=== PATIENT | male | born 1985 | race African-American/Black ===

== ENCOUNTER 2017-10-31 19:56 | Emergency (ER) | payer MEDICAID ==
[~2017-10-31] VITALS: Ht 175.3 cm; Wt 64.0 kg
[~2017-10-31 19:56] MED LIST: CIPR2.5D9 OP
[2017-11-01 03:00] VITALS: BP 109/67
[2017-11-01] MEDS ORDERED: IBUPROFEN 600MG TABLET PO ONE (03:00)
== END 2017-11-01 03:30 | disposition home or self-care (01) ==
LOC: ER 19:56
DX: S16.1XXA Strain of muscle, fascia and tendon at neck level, initial encounter (principal); R05 Cough; X58.XXXA Exposure to other specified factors, initial encounter; Y93.89 Activity, other specified; Y92.89 Other specified places as the place of occurrence of the external cause; Y99.8 Other external cause status; Z88.0 Allergy status to penicillin
CPT/HCPCS: 71045; 99283

== ENCOUNTER 2018-09-27 19:12 | Emergency (ER) | payer MEDICAID ==
[~2018-09-27] VITALS: Ht 175.3 cm; Wt 62.0 kg
[2018-09-27 20:04] VITALS: BP 120/63
[2018-09-27] MEDS ORDERED: ONDANSETRON HCL 4MG/2ML INJ IV STA (20:35)
[2018-09-27] MEDS ORDERED: SODIUM CHLORIDE 0.9% 1,000 ML IV ONE (20:35)
[2018-09-27] MEDS ORDERED: ACETAMINOPHEN 325MG TABLET PO ONE (20:45)
[2018-09-27 20:56] LABS: HEMATOCRIT. 43.6 % (42.0-52.0); HEMOGLOBIN. 14.6 g/dL (14.0-18.0); MEAN CORPUSCULAR HEMOGLOBIN 29.9 pg (28.0-32.0); MEAN CORPUSCULAR VOLUME 89.1 fL (80.0-94.0); MEAN PLATELET VOLUME 10.8 fl (7.4-10.4); PLATELET 170 x1000/uL (130-400); RED CELL DISTRIBUTION WIDTH 13.5 % (11.6-14.6)
[2018-09-27 20:57] LABS: CHLORIDE 104 mEq/L (98-107)
[2018-09-27 21:43] LABS: CLARITY URINE CLEAR (CLEAR); COLOR URINE YELLOW (YELLOW); KETONES URINE 1+ (NEGATIVE); LEUKOCYTE ESTERASE URINE TRACE (NEGATIVE); NITRITE URINE NEGATIVE (NEGATIVE); OCCULT BLOOD URINE NEGATIVE (NEGATIVE); PH URINE 7.5 (4.5-8.0); PROTEIN URINE TRACE (NEGATIVE); UROBILINOGEN URINE 0.2 E.U./dL (0.2-1.0)
[2018-09-27 22:24] LABS: PLATELET ESTIMATE NORMAL
== END 2018-09-27 22:54 | disposition home or self-care (01) ==
LOC: ER 19:12
DX: R11.10 Vomiting, unspecified (principal); R19.7 Diarrhea, unspecified; J45.909 Unspecified asthma, uncomplicated; Z88.0 Allergy status to penicillin
CPT/HCPCS: 36415; 80053; 81003; 85025; 96361; 96374; 99283; J2405; J7030; Z7610

== ENCOUNTER 2022-10-08 11:31 | Emergency (ER) | payer MEDICAID ==
[~2022-10-08] VITALS: Ht 175.3 cm; Wt 59.0 kg
[~2022-10-08 11:31] MED LIST changes: +CIPR2.5D13 OP; -CIPR2.5D9 OP
[2022-10-08] MEDS ORDERED: VISCOUS LIDOCAINE 2% 15 ML UDC MM STA (12:28)
[2022-10-08] MEDS ORDERED: MAGNESIUM/ALUMINUM HYDROXIDE/SIMETHICONE 30ML UDC PO ONE (12:30)
[2022-10-08] MEDS ORDERED: FAMOTIDINE 20MG TABLET PO ONE (12:30)
[2022-10-08] MEDS ORDERED: ONDANSETRON 4MG ODT PO ONE (12:30)
[2022-10-08 13:30] VITALS: BP 107/72
[2022-10-08] MEDS ORDERED: SODIUM CHLORIDE 0.9% 1,000 ML IV ONE (13:30)
[2022-10-08] MEDS ORDERED: KETOROLAC 15MG/ML VIAL IV ONE (13:30)
[2022-10-08] MEDS ORDERED: METOCLOPRAMIDE HCL 10MG/2ML VIAL IV ONE (13:30)
[2022-10-08 14:12] LABS: BASOPHILS % 0.6 % (0.0-2.0); HEMATOCRIT. 45.2 % (42.0-52.0); HEMOGLOBIN. 15.2 g/dL (14.0-18.0); LYMPHOCYTES % 7.9 % (20.0-50.0); MEAN CORPUSCULAR HEMOGLOBIN 29.8 pg (28.0-32.0); MEAN CORPUSCULAR VOLUME 88.3 fL (80.0-94.0); NEUTROPHILS % 84.5 % (40.0-76.0); RED BLOOD CELL COUNT 5.11 mill/uL (4.7-6.1); RED CELL DISTRIBUTION WIDTH 14.1 % (11.6-14.6)
[2022-10-08 14:15] LABS: CHLORIDE 95 mEq/L (98-107)
[2022-10-08 14:46] LABS: MEAN PLATELET VOLUME 10.8 fl (7.4-10.4); PLATELET 184 x1000/uL (130-400)
[2022-10-08] MEDS ORDERED: FAMO-135 MT (15:41)
[2022-10-08] MEDS ORDERED: ONDA4TAB11 PO (15:41)
== END 2022-10-08 16:04 | disposition home or self-care (01) ==
LOC: ER 12:36
DX: R11.2 Nausea with vomiting, unspecified (principal); R19.7 Diarrhea, unspecified; E86.0 Dehydration; R10.84 Generalized abdominal pain
CPT/HCPCS: 36415; 80053; 83690; 85025; 96361; 96374; 96375; 99284; J1885; J2765; J7030; Q0162